=== PATIENT | male | born 1980 | race Two or more races ===

== ENCOUNTER 2016-05-09 08:01 | Emergency (ER) | payer MEDICAID ==
[~2016-05-09] VITALS: Ht 185.4 cm; Wt 74.4 kg
[2016-05-09 08:30] VITALS: BP 119/78
== END 2016-05-09 09:30 | disposition home or self-care (01) ==
LOC: ER 08:01
DX: S60.211A Contusion of right wrist, initial encounter (principal); Z91.013 Allergy to seafood; W22.8XXA Striking against or struck by other objects, initial encounter; Y93.89 Activity, other specified; Y99.8 Other external cause status; Y92.89 Other specified places as the place of occurrence of the external cause
CPT/HCPCS: 73110